=== PATIENT | male | born 2000 | race African-American/Black ===

== ENCOUNTER 2022-08-27 14:40 | Emergency (ER) | payer MEDICAID, SELFPAY ==
[2022-08-27 14:43] VITALS: BP 143/73; PULSE 57; RESP 20; TEMP 36.6; O2SAT 98; BMI 16.7
--- NOTE | 2022-08-27 15:03 | ED.GENADULT ---
HPI - General Adult General Chief complaint: Unspecified Complaint, Adult Stated complaint: Needs catherine removed from head Time Seen by Provider: 08/27/22 14:51 Source: patient Mode of arrival: ambulatory Limitations: no limitations History of Present Illness HPI narrative: Sutures placed after head injury on 07/21. Patient reports that he was incarcerated in the meantime and did not have an option to have the catherine removed. He is now out of [facility] requesting removal. He states that originally 3 catherine were placed but 1 happened to fall out while in [facility]. He has no other concerns. He has not noted any bleeding or drainage. No new areas of injury, no other acute concerns today. Denies any long-term health problems or medications. Related Data Home Medications Medication Instructions Recorded Confirmed No Known Home Medications 08/27/22 08/27/22 Allergies Allergy/AdvReac Type Severity Reaction Status Date / Time No Known Drug Allergies Allergy Verified 08/27/22 14:47 PFSH PFS Social History Smoking Status: Current every day smoker What tobacco products do you use: cigarettes Do you use any of these nicotine containing products: None Second hand tobacco smoke exposure: No How often do you have a drink containing alcohol: never How often do you have six or more drinks on one occasion: Never AUDIT-C Alcohol total score: 0 Non-prescribed substance use: marijuana (any form) Exam Narrative: Exam Narrative: Vital signs reviewed. General he is awake alert pleasant cooperative not distressed. The area in question is on the frontal area of the scalp. There is a close to 1.5 cm laceration with 2 catherine remaining. The skin has moderately grown over these but the tops of the catherine are still easily visible. The underlying incision of appears well healed, no redness or drainage. He otherwise makes good eye contact, has normal speech, answers questions appropriately and ambulates into the exam room with no difficulty. Breathing is unlabored. Const: Vital Signs, click to edit/add: Vital Signs - 24 hr 08/27/22 14:43 Temperature 97.9 F Pulse Rate [Pulse Oximeter] 57 L Respiratory Rate 20 Blood Pressure [Ri ght Upper Arm] 143/73 H Pulse Oximetry 98 Oxygen Delivery Me thod Room Air Course Vital Signs Vital signs: Initial Vital Signs Temperature 97.9 F 08/27/22 14:43 Temperature Source Temporal Artery Scan 08/27/22 14:43 Pulse Rate 57 L 08/27/22 14:43 Respiratory Rate 20 08/27/22 14:43 Blood Pressure 143/73 H 08/27/22 14:43 Blood Pressure Mean 96 08/27/22 14:43 Blood Pressure Position Sitting 08/27/22 14:43 Pulse Oximetry 98 08/27/22 14:43 Oxygen Delivery Method 08/27/22 14:43 Vital Signs Temperature 97.9 F 08/27/22 14:43 Pulse Rate 57 L 08/27/22 14:43 Respiratory Rate 20 08/27/22 14:43 Blood Pressure 143/73 H 08/27/22 14:43 Pulse Oximetry 98 08/27/22 14:43 Oxygen Delivery Method 08/27/22 14:43 Temperature 97.9 F 08/27/22 14:43 Pulse Rate 57 L 08/27/22 14:43 Respiratory Rate 20 08/27/22 14:43 Blood Pressure 143/73 H 08/27/22 14:43 Pulse Oximetry 98 08/27/22 14:43 Oxygen Delivery Method 08/27/22 14:43 Medical Decision Making MDM Narrative Medical decision making narrative: Catherine removed without complication. Covered with antibiotic ointment, instructed on wound care. Follow up as needed only. Discharge Plan Discharge Clinical Impression: Encounter for removal of catherine Patient Disposition: Home, Self-Care Condition: Improved Instructions: Staple Care (ED) Additional Instructions: The catherine were removed without complication, but they were left in a little longer than we would like. It is normal to have a little bit of bleeding and some tenderness in this area but this should heal up without any further complication. You will likely have a bald spot for a few months over the area of injury but the hair should eventually grow back. You may shower as usual, style your hair is normal and do not need to take any special measures. We did put a little bit of antibiotic ointment over the area today but you do not need to keep doing this. Activity Level: No Restrictions Discharge Diet: Regular Prescriptions: No Action No Known Home Medications Stand Alone Forms: MyHealth Info Instructions
== END 2022-08-27 15:32 | disposition home or self-care (01) ==
LOC: ED 15:16
PROVIDERS: Emergency Provider Family Medicine
DX: Z48.02 Encounter for removal of sutures (principal)
CPT/HCPCS: 99281